=== PATIENT | male | born 1950 | race Caucasian/White ===

== ENCOUNTER 2016-06-08 00:25 | Emergency (ER) | payer OTHER ==
[2016-06-08 01:16] VITALS: RESP 16; TEMP 97.9
--- NOTE | 2016-06-08 03:46 | EDPHY ---
HPI/HX/ROS/PE/MDM Narrative: Chief complaint: General malaise, cold, caught the rate HPI: 65-year-old homeless male brought in by police after being found cold in the rain. Patient states he is his normal general fatigue and weakness. Has had a nonproductive cough which has been improving over the last week or 2. No fevers or chills. No chest pain. No nausea vomiting. No abdominal pain. ROS: 10 point Review of Systems is negative except as noted in the HPI. Physical exam: Gen: Awake, Alert, No Distress HEENT: Nose: no rhinorrhea Eyes: PERRLA, EOMI Mouth: Moist mucosa Neck: Supple, no JVD Chest: nontender, lungs clear to auscultation Heart: S1, S2 normal, no murmur Abd: Soft, non-tender, no guarding Back: no CVA tenderness, no midline tenderness Ext: no edema, non-tender Skin: no rash Neuro: CN II-XII intact, Sensation grossly intact, Strength 5/5 in bilateral upper and lower extremities ED Course: Homeless 65-year-old male with no acute medical problems going on at this time. He is mildly hypertensive. His oxygen saturations are good. He has a benign examination. He presented with mild hypothermia which is improved. His clothes are dry. [facility] General Time Seen by Provider: 06/08/16 02:21 Initial Vital Signs: Initial Vital Signs Temperature (C) 36.6 C 06/08/16 01:15 Heart Rate 79 06/08/16 01:15 Respiratory Rate 16 06/08/16 01:15 Blood Pressure 178/126 H 06/08/16 01:15 O2 Sat (%) 93 06/08/16 01:15 O2 Delivery Mode Room Air Allergies/Adverse Reactions: No Known Allergies Allergy (Unverified 01/18/16 00:10) Home Medications: Medication Instructions Recorded Lisinopril [Zestril 20 mg (*)] 20 mg PO DAILY 06/20/15 metFORMIN HCL [Glucophage 500 mg 500 mg PO DAILY 06/20/15 (*)] oxyCODONE HCL [Oxycontin] 10 mg PO 04/13/16 Departure - Departure Disposition: Home, Routine, Self-Care Clinical Impression: Hypothermia Condition: Good Instructions: Acute Hypothermia (ED) Additional Instructions: Follow up with [facility] for any concerns.
[2016-06-08 06:10] VITALS: BP 143/100; PULSE 67; O2SAT 94
== END 2016-06-08 07:01 | disposition home or self-care (01) ==
DX: T68.XXXA Hypothermia, initial encounter (principal); X31.XXXA Exposure to excessive natural cold, initial encounter

== ENCOUNTER 2016-06-16 16:31 | Inpatient (IN) | payer OTHER ==
--- NOTE | 2016-06-16 16:54 | EDPHY ---
H & P Stated Complaint: sleeping in library, incontinent of urine Time Seen by Provider: 06/16/16 16:40 HPI/ROS: CHIEF COMPLAINT: Found sleeping in library, incontinent of urine HISTORY OF PRESENT ILLNESS: The patient is a homeless male who is well known to our emergency department. He was found sleeping in the library and incontinent of urine. The patient was brought to the emergency department for further evaluation. The patient is somewhat of an unreliable historian. He does have a history of chronic incontinence per his medical history. The patient denies fever, vomiting or acute abdominal pain. The patient does walk with a walker. The patient denies any acute numbness or weakness. He does have chronic lower extremity weakness. The patient does report a history of stroke 20 years ago. The patient reports he has been using a walker for the past 2 weeks which he apparently procured at the [facility]. The patient tells me he typically gets his care at the [facility] but is uncertain of the last time he had an appointment. The patient does report he takes lisinopril but does not know his other medications. REVIEW OF SYSTEMS: A comprehensive 10 point review of systems is otherwise negative aside from elements mentioned in the history of present illness. Source: Patient Exam Limitations: No limitations - Personal History Current Tetanus/Diphtheria Vaccine: Yes Current Tetanus Diphtheria and Acellular Pertussis (TDAP): Yes Tetanus Vaccine Date: 2015 - Medical/Surgical History Hx Asthma: No Hx Chronic Respiratory Disease: No Hx Diabetes: Yes Hx Cardiac Disease: Yes Hx Renal Disease: No Hx Cirrhosis: No Hx Alcoholism: No Hx HIV/AIDS: No Hx Splenectomy or Spleen Trauma: No Other PMH: Abd hernia, DM, HTN, CVA (49yo) w/ expressive aphasia, chronic low back pain, chronic incont. chronic dental pain - Social History Smoking Status: Never smoked - Physical Exam Exam: General Appearance: Disheveled male, smells of urine Eyes: Pupils equal and round no pallor or injection ENT, Mouth: Mucous membranes moist Respiratory: There are no retractions, lungs are clear to auscultation Cardiovascular: Regular rate and rhythm Gastrointestinal: Abdomen is soft and nontender, no masses, bowel sounds normal Neurological: Alert and oriented x2 (name and place), cranial nerves 2-12 intact, chronic lower extremity weakness noted Skin: Warm and dry, no rashes Musculoskeletal: Neck is supple nontender Extremities: symmetrical, full range of motion Constitutional: Initial Vital Signs Temperature (C) 37.1 C 06/16/16 16:35 Heart Rate 81 06/16/16 16:35 Respiratory Rate 17 06/16/16 16:35 Blood Pressure 168/111 H 06/16/16 16:35 O2 Sat (%) 92 06/16/16 16:35 O2 Delivery Mode Room Air Allergies/Adverse Reactions: No Known Allergies Allergy (Verified 06/16/16 16:34) Home Medications: Medication Instructions Recorded Lisinopril [Zestril 20 mg (*)] 20 mg PO DAILY 06/20/15 metFORMIN HCL [Glucophage 500 mg 500 mg PO DAILY 06/20/15 (*)] oxyCODONE HCL [Oxycontin] 10 mg PO 04/13/16 Atenolol 06/16/16 Unable To Obtain Medication History 06/16/16 Medical Decision Making - Diagnostics Imaging: CT head without contrast: Stable atrophy. No evidence of intracranial hemorrhage or intracranial mass. Study results reported to me by Dr. Sameer Brown ED Course/Re-evaluation: I reviewed the patient's past medical records. The patient did receive IV fluids. His laboratory studies are within normal limits. A urinalysis has been obtained. The patient's postvoid residual is 70 mL. He has no evidence of urinary retention. The patient is quite confused in a very unreliable historian. I am certainly concerned about the patient's overall state of health given the fact he is homeless. At this point time the etiology of his lower extremity weakness is somewhat uncertain. The patient tells me he has been using a walker for the past 2 weeks. Additionally, the patient has incontinence. There is some mention of chronic incontinence in his medical record however I see no workup of this condition. At this point time there is no evidence of urinary tract infection or urinary retention. His serum electrolytes and CBC within normal limits. I have ordered a CT scan of his brain to assess for the development of more significant hydrocephalus is the patient does have a clinical pattern suggestive of possible normal pressure hydrocephalus. CT scan of his brain today demonstrates stable atrophy. I do feel the patient should be admitted to the hospital and evaluated by social work to see if there additional resources available for this gentleman. Consultation is made with Dr. Ignacio from the hospitalist service will admit the patient. Differential Diagnosis: Differential diagnosis considered includes acute renal failure, acute urinary retention, urinary tract infection, sepsis, dehydration, normal pressure hydrocephalus, intracranial hemorrhage - Data Points Laboratory Results: Laboratory Results 06/16/16 17:05 06/16/16 17:05 06/16/16 06/16/16 18:30 17:05 WBC 6.74 10^3/uL (3.80-9.50) RBC 5.01 10^6/uL (4.40-6.38) Hgb 14.9 g/dL (13.7-17.5) Hct 44.5 % (40.0-51.0) MCV 88.8 fL (81.5-99.8) MCH 29.7 pg (27.9-34.1) MCHC 33.5 g/dL (32.4-36.7) RDW 13.5 % (11.5-15.2) Plt Count 216 10^3/uL (150-400) MPV 11.6 fL (8.7-11.7) Neut % (Auto) 60.9 % (39.3-74.2) Lymph % (Auto) 21.1 % (15.0-45.0) Mayes % (Auto) 12.5 % (4.5-13.0) Eos % (Auto) 3.9 % (0.6-7.6) Baso % (Auto) 1.2 % (0.3-1.7) Nucleat RBC Rel Count 0.0 % (0.0-0.2) Absolute Neuts (auto) 4.11 10^3/uL (1.70-6.50) Absolute Lymphs (auto) 1.42 10^3/uL (1.00-3.00) Absolute Monos (auto) 0.84 H 10^3/uL (0.30-0.80) Absolute Eos (auto) 0.26 10^3/uL (0.03-0.40) Absolute Basos (auto) 0.08 10^3/uL (0.02-0.10) Absolute Nucleated RBC 0.00 10^3/uL (0-0.01) Immature Gran % 0.4 % (0.0-1.1) Immature Gran # 0.03 10^3/uL (0.00-0.10) Sodium 139 mEq/L (134-144) Potassium 3.6 mEq/L (3.5-5.2) Chloride 99 mEq/L (97-110) Carbon Dioxide 30 mEq/l (22-31) Anion Gap 10 mEq/L (8-16) BUN 24 H mg/dL (7-23) Creatinine 1.1 mg/dL (0.7-1.3) Estimated GFR > 60 Glucose 114 H mg/dL (70-100) Calcium 9.6 mg/dL (8.5-10.4) Urine Color PALE YELLOW Urine Appearance CLEAR Urine pH 7.0 (5.0-7.5) Ur Specific [place] 1.006 (1.002-1.030) Urine Protein 1+ H (NEGATIVE) Urine Ketones NEGATIVE (NEGATIVE) Urine Blood NEGATIVE (NEGATIVE) Urine Nitrate NEGATIVE (NEGATIVE) Urine Bilirubin NEGATIVE (NEGATIVE) Urine Urobilinogen NEGATIVE EU (0.2-1.0) Ur Leukocyte Esterase NEGATIVE (NEGATIVE) Urine RBC 1-3 /hpf (0-3) Urine WBC 1-3 /hpf (0-3) Ur Epithelial Cells NONE SEEN /lpf (NONE-1+) Ur Culture Indicated? NOT INDICATED (NI) Urine Glucose NEGATIVE (NEGATIVE) Ethyl Alcohol < 10 mg/dL (0-10) Departure - Departure Disposition: [facility] Clinical Impression: Urinary incontinence, Expressive aphasia, Hx of arterial ischemic stroke Condition: Fair
[2016-06-16 17:16] LABS: % IMMATURE GRANULYOCYTES 0.4 % (0.0-1.1); ABSOLUTE IMMATURE GRANULOCYTES 0.03 10^3/uL (0.00-0.10); ADD DIFF? NO; ADD MORPH? NO; ADD SCAN? NO; ATYPICAL LYMPHOCYTE FLAG 10 (0-99); FRAGMENT RBC FLAG 0 (0-99); HEMATOCRIT 44.5 % (40.0-51.0); HEMOGLOBIN 14.9 g/dL (13.7-17.5); LEFT SHIFT FLG 0 (0-99); LIPEMIA HEMOLYSIS FLAG 80 (0-99); MEAN CELL HEMOGLOBIN 29.7 pg (27.9-34.1); MEAN CELL HEMOGLOBIN CONCENTR. 33.5 g/dL (32.4-36.7); MEAN CELL VOLUME 88.8 fL (81.5-99.8); MEAN PLATELET VOLUME 11.6 fL (8.7-11.7); PLATELET CLUMPS FLAG 0 (0-99); PLATELET COUNT 216 10^3/uL (150-400); RED BLOOD CELL COUNT 5.01 10^6/uL (4.40-6.38); RED CELL DISTRIBUTION WIDTH 13.5 % (11.5-15.2)
[2016-06-16 17:36] LABS: ANION GAP 10 mEq/L (8-16); CALCIUM 9.6 mg/dL (8.5-10.4); CARBON DIOXIDE 30 mEq/l (22-31); CHLORIDE 99 mEq/L (97-110); CREATININE 1.1 mg/dL (0.7-1.3); ETHANOL SERUM < 10 mg/dL (0-10); GLOMERULAR FILTRATION RATE > 60; GLUCOSE 114 mg/dL (70-100); POTASSIUM 3.6 mEq/L (3.5-5.2); SODIUM 139 mEq/L (134-144)
[2016-06-16 18:42] LABS: COLOR PALE YELLOW; LEUKOCYTE ESTERASE,URINE NEGATIVE (NEGATIVE); NITRITE,URINE NEGATIVE (NEGATIVE)
[2016-06-16] MEDS ORDERED: ONDANSETRON 4 MG/2 ML VIAL IVP PRN (20:37)
[2016-06-16] MEDS ORDERED: ONDANSETRON DISINTEGRATING 4 MG TAB PO PRN (20:37)
[2016-06-16] MEDS ORDERED: ACETAMINOPHEN 325 MG TAB PO PRN (20:37)
[2016-06-16] MEDS ORDERED: D50W 25 GM/50 ML SYR IVP PRN (21:07)
--- NOTE | 2016-06-16 21:15 | CT ---
CT Brain (Without Contrast) June 15, 2016 at 1935 hours History: Incontinence and dementia. Evaluate for normal pressure hydrocephalus. Technique: Axial computed tomographic images of the brain, without contrast. Dose reduction techniq ues were utilized. Comparison: January 24, 2016. Findings: Ventricles, cisterns, and sulci are widened consistent with atrophy. No hydrocephalus, mi dline shift/herniation, or epidural/subdural hematomas. No acute intraparenchymal hemorrhage or mass effect. Cerebrovascular atherosclerosis. Hypodensities in the white matter of bilateral cerebral h emispheres. Bone windows demonstrate no displaced fractures. Paranasal sinuses and mastoid air cell s are clear. Impressions 1. Moderate atrophy. Ventricular size remains stable compared to five months prior. Normal pressur e hydrocephalus is not completely excluded. 2. No acute hemorrhage, hydrocephalus, or mass effect. 3. Cerebrovascular atherosclerosis. 4. No definite acute infarct. 5. Moderate microvascular ischemic disease. Results discussed by Dr. Brown with Dr. Velez on June 16, 2016 at 1956 hours.
[2016-06-16] MEDS: hydrALAZINE 25 MG TAB PO SCH (21:44)
--- NOTE | 2016-06-16 23:13 | DX ---
AP upright portable chest. June 16, [id number] hours. COMPARISON: May 12, 2016 January 18, 2016. FINDINGS: Lungs are hypoventilated. Heart size is within normal limits. No effusions. Mild bronchial wall thickening is again present. Old healed left rib fractures are noted. IMPRESSION: Mild hypoventilation. Suspect airways disease.
--- NOTE | 2016-06-17 00:19 | GHP ---
[f rep st] HISTORY AND PHYSICAL DATE OF ADMISSION: 06/16/2016 CHIEF COMPLAINT: Urinary incontinence, FTT HISTORY OF PRESENT ILLNESS: Patient is a 66-year-old male with history of CVA and dysphagia, homelessness, who was found sleeping in the library and incontinent of urine today. He was brought to the emergency room for further evaluation. He is a poor historian. Most of my data is from review of prior records and the ED physician reports. It is noted he has a history of chronic incontinence. He denies fevers, chills, or sweats. He has shortness of breath , which he says is chronic and unchanged. He has a dry cough. No numbness tingling. He says he has been using a walker for the past 2 weeks, which he got from the homeless snf. He normally gets care at the [place]. Unclear last time he visited there. The patient was seen in the emergency room here a week ago after being found cold in the rain. At that time, he had his normal general fatigue and weakness. He was hydrated and warmed, and then discharged to follow up with [facility]. REVIEW OF SYSTEMS: I completed a 10-point review of systems, negative except as noted in HPI. PAST MEDICAL HISTORY: 1. CVA with subsequent aphasia. 2. Homelessness. 3. Type 2 diabetes. 4. Hypertension. PAST SURGICAL HISTORY: The patient could not tell me. MEDICATIONS: He states he is on lisinopril and metformin, but unclear dosage and when the last time he took. ALLERGIES: No known drug allergies. SOCIAL HISTORY: Lives in [facility]. He denies tobacco, alcohol, or illicit's. He is a . He was in the [employer]. FAMILY HISTORY: Could not tell me. PHYSICAL EXAMINATION: VITAL SIGNS: Temperature 36.6, blood pressure 164/113, heart rate 70s-80s, respirations 16, 91% on room air. GENERAL: Disheveled. HEENT: Poor dentition. Dry mucous membranes. Dry cough. CV: Regular rate and rhythm. No murmurs, gallops, or rubs. +1 edema to recinos bilaterally. LUNGS : Clear to auscultation. ABDOMEN: Soft, nontender, nondistended. Positive bowel sounds. : No suprapubic tenderness. MUSCULOSKELETAL: 5/5 upper lower extremity strength. NEURO: 2 through 12 intact. Aphasic, difficult to answer questions. PSYCH: Alert to [place] only, said year was 2015. LABS: WBC 6.7, hemoglobin 14, hematocrit 44, platelets 216, sodium 139, potassium 3.6, chloride 99, BUN 24, creatinine 1.1, glucose 114, calcium 9.6. Urine +1 protein. Blood alcohol was negative. ASSESSMENT AND PLAN: 1. Failure to thrive: this is his 2nd visit to the ER in the past week. He is unclear why he was here. Query underlying dementia. PT & OT to evaluate. CTH was negative for acute stroke or normal hydrocephalus. The patient is a , thus will have [facility] management assist [facility]. 2. Accelerated hypertension. Patient denies chest pain or headache. No evidence of end-organ damage. Will check an EKG. He states he takes lisinopril , unclear when he last took this dose. I will dose him in the morning. In the interim, I will dose p.r.n. hydralazine. 3. Control diabetes. Hold metformin. Will do sliding scale insulin here. 4. History of stroke: Aphasic. No evidence of new ischemia on CT. Patient needs better blood pressure control as stated above. 5. Homelessness: case management to evaluate. 6. Cough: check CXR and flu swab. I will check a chest x-ray. 8. Diet. Regular. 9. DVT prophylaxis. 10. Disposition. Patient warrants inpatient admission given failure to thrive and risk for harm to self. /[id number]/MODL MTDD
[2016-06-17] MEDS: hydrALAZINE 25 MG TAB PO SCH (05:00)
[2016-06-17 05:50] LABS: ANION GAP 11 mEq/L (8-16); CALCIUM 8.9 mg/dL (8.5-10.4); CARBON DIOXIDE 26 mEq/l (22-31); CHLORIDE 102 mEq/L (97-110); CREATININE 0.9 mg/dL (0.7-1.3); GLOMERULAR FILTRATION RATE > 60; GLUCOSE 153 mg/dL (70-100); POTASSIUM 3.5 mEq/L (3.5-5.2); SODIUM 139 mEq/L (134-144)
[2016-06-17] MEDS: LISINOPRIL 20 MG TAB PO SCH (08:00)
[2016-06-17] MEDS: INSULIN LISPRO 100 UNIT/ML SC SCH ×3 (09:50→17:41)
--- NOTE | 2016-06-17 09:52 | HOSPPROG ---
Hospitalist Progress Note Assessment/Plan: ASSESSMENT/PLAN: 66-year-old man, history of CVA with aphasia, homeless, initially presented as failure to thrive after being found in the library incontinent of urine and sleeping. Workup reveals influenza a. # influenza a - start Tamiflu # CVA with aphasia - start aspirin/statin # hypertension: Continue lisinopril, start low-dose amlodipine # diabetes mellitus type 2 - glucs slightly elevated, follow - per chart on metformin # homeless - CM assistance # FCFT # lovenox SUBJECTIVE: Has headache; tells me he is always weak on the right side; he received IV hydralazine last night for hypertension OBJECTIVE: Vitals reviewed Comfortable, no acute distress Aphasic, speaks 1 or 2 word sentences; slightly weak on the right side Regular rate and rhythm, no murmurs rubs or gallops No respiratory distress, lungs clear to auscultation bilaterally; no wheezes rales or rhonchi Abdomen with normal bowel sounds, soft, nontender, nondistended LABORATORY DATA: Reviewed IMAGING: Chest x-ray personally viewed and interpreted, airways disease Objective: Vital Signs Temp Pulse Resp BP Pulse Ox 36.9 C 95 16 182/125 H 95 06/17/16 07:16 06/17/16 07:16 06/17/16 07:16 06/17/16 08:00 06/17/16 07:16 Laboratory Results 06/17/16 05:16 06/16/16 06/17/16 06/18/16 05:59 05:59 05:59 Intake Total 400 Output Total 100 Balance 300 ICD10 Worksheet Patient Problems: Problems Problem Status Diagnosed Altered mental status Acute Expressive aphasia Acute Flu Acute Hx of arterial ischemic stroke Acute Urinary incontinence Acute Fall Acute Hematuria Acute
[2016-06-17] MEDS: ASPIRIN 81 MG CHEWABLE TAB PO SCH (10:10)
[2016-06-17] MEDS: OSELTAMIVIR PHOSPHATE 75 MG CAP PO SCH ×2 (10:11→16:51)
[2016-06-17] MEDS: ENOXAPARIN 40 MG/0.4 ML SYR SC SCH (12:05)
[2016-06-18 05:35] LABS: % IMMATURE GRANULYOCYTES 0.2 % (0.0-1.1); ABSOLUTE IMMATURE GRANULOCYTES 0.01 10^3/uL (0.00-0.10); ADD DIFF? NO; ADD MORPH? NO; ADD SCAN? NO; ATYPICAL LYMPHOCYTE FLAG 10 (0-99); FRAGMENT RBC FLAG 0 (0-99); HEMATOCRIT 42.7 % (40.0-51.0); HEMOGLOBIN 14.6 g/dL (13.7-17.5); LEFT SHIFT FLG 0 (0-99); LIPEMIA HEMOLYSIS FLAG 90 (0-99); MEAN CELL HEMOGLOBIN 29.4 pg (27.9-34.1); MEAN CELL HEMOGLOBIN CONCENTR. 34.2 g/dL (32.4-36.7); MEAN CELL VOLUME 86.1 fL (81.5-99.8); MEAN PLATELET VOLUME 11.1 fL (8.7-11.7); PLATELET CLUMPS FLAG 10 (0-99); PLATELET COUNT 198 10^3/uL (150-400); RED BLOOD CELL COUNT 4.96 10^6/uL (4.40-6.38); RED CELL DISTRIBUTION WIDTH 13.7 % (11.5-15.2)
[2016-06-18 06:20] LABS: ANION GAP 11 mEq/L (8-16); CALCIUM 8.6 mg/dL (8.5-10.4); CARBON DIOXIDE 25 mEq/l (22-31); CHLORIDE 102 mEq/L (97-110); CHOLESTEROL 171 mg/dL (140-220); CHOLESTEROL/HDL RATIO 5.34 RATIO (1.00-4.97); GLOMERULAR FILTRATION RATE > 60; GLUCOSE 151 mg/dL (70-100); HIGH DENSITY LIPOPROTEIN 32 mg/dL (40-65); LDL/HDL RATIO 3.38 RATIO (1.00-3.64); LOW DENSITY LIPOPROTEIN 108 mg/dL (80-100); NON-HIGH DENSITY LIPOPROTEIN 139 mg/dL (90-129); POTASSIUM 3.4 mEq/L (3.5-5.2); SODIUM 138 mEq/L (134-144); TRIGLYCERIDE 156 mg/dL (40-150); VERY LOW DENSITY LIPOPROTEINS 31 mg/dL (8-25)
[2016-06-18] MEDS: LISINOPRIL 20 MG TAB PO SCH (06:50)
[2016-06-18] MEDS ORDERED: POTASSIUM CL 20 MEQ TAB PO ONE (08:44)
--- NOTE | 2016-06-18 08:45 | HOSPPROG ---
Hospitalist Progress Note Assessment/Plan: ASSESSMENT/PLAN: 66-year-old man, history of CVA with aphasia, homeless, initially presented as failure to thrive after being found in the library incontinent of urine and sleeping. Workup reveals influenza a. # influenza a - cont tamiflu # weakness - likely d/t influenza in the setting of underlying chronic illness # urinary incontinence - suspect baseline; UA negative # CVA with aphasia - start aspirin/statin - LDL slightly high but he was not taking medicines # hypertension: Continue lisinopril, start low-dose amlodipine # diabetes mellitus type 2 - glucs slightly elevated, follow - start metformin # hypokalemia: Replete and recheck # homeless - CM assistance - likely needs SNF # FCFT # lovenox # mod risk with ongoing weakness SUBJECTIVE: Weak, urinary incontinence OBJECTIVE: Vitals reviewed Comfortable, no acute distress expressive aphasia Regular rate and rhythm, no murmurs rubs or gallops No respiratory distress, lungs clear to auscultation bilaterally; no wheezes rales or rhonchi Abdomen with normal bowel sounds, soft, nontender, nondistended LABORATORY DATA: Reviewed Objective: Vital Signs Temp Pulse Resp BP Pulse Ox 37.1 C 75 18 149/102 H 93 06/18/16 07:40 06/18/16 07:40 06/18/16 07:40 06/18/16 07:40 06/18/16 07:40 Laboratory Results 06/18/16 05:28 06/18/16 05:28 06/17/16 06/18/16 06/19/16 05:59 05:59 05:59 Intake Total 400 500 Output Total 100 Balance 300 500 ICD10 Worksheet Patient Problems: Problems Problem Status Diagnosed Altered mental status Acute Expressive aphasia Acute Flu Acute Hx of arterial ischemic stroke Acute Urinary incontinence Acute Fall Acute Hematuria Acute
[2016-06-18] MEDS: INSULIN LISPRO 100 UNIT/ML SC SCH ×3 (09:00→18:37)
[2016-06-18] MEDS: ATORVASTATIN CALCIUM 10 MG TAB PO SCH (09:38)
[2016-06-18] MEDS: OSELTAMIVIR PHOSPHATE 75 MG CAP PO SCH ×2 (09:38→18:01)
[2016-06-18] MEDS: metFORMIN HCL 500 MG TAB PO SCH (09:38)
[2016-06-18] MEDS: ASPIRIN 81 MG CHEWABLE TAB PO SCH (09:38)
[2016-06-18] MEDS: ENOXAPARIN 40 MG/0.4 ML SYR SC SCH (09:43)
[2016-06-19 06:20] LABS: ANION GAP 9 mEq/L (8-16); CALCIUM 8.7 mg/dL (8.5-10.4); CARBON DIOXIDE 26 mEq/l (22-31); CHLORIDE 104 mEq/L (97-110); CREATININE 1.1 mg/dL (0.7-1.3); GLOMERULAR FILTRATION RATE > 60; GLUCOSE 114 mg/dL (70-100); POTASSIUM 3.6 mEq/L (3.5-5.2); SODIUM 139 mEq/L (134-144)
[2016-06-19] MEDS: INSULIN LISPRO 100 UNIT/ML SC SCH ×3 (07:21→18:02)
[2016-06-19] MEDS: OSELTAMIVIR PHOSPHATE 75 MG CAP PO SCH ×2 (09:44→18:02)
[2016-06-19] MEDS: ATORVASTATIN CALCIUM 10 MG TAB PO SCH (09:45)
[2016-06-19] MEDS: metFORMIN HCL 500 MG TAB PO SCH (09:45)
[2016-06-19] MEDS: ASPIRIN 81 MG CHEWABLE TAB PO SCH (09:45)
[2016-06-19] MEDS: ENOXAPARIN 40 MG/0.4 ML SYR SC SCH (09:45)
[2016-06-19] MEDS: LISINOPRIL 20 MG TAB PO SCH (09:47)
--- NOTE | 2016-06-19 19:48 | HOSPPROG ---
Hospitalist Progress Note Assessment/Plan: ASSESSMENT/PLAN: 66-year-old man, history of CVA with aphasia, homeless, initially presented as failure to thrive after being found in the library incontinent of urine and sleeping. Workup revealed influenza a. # influenza a - cont tamiflu # weakness - likely d/t influenza in the setting of underlying chronic illness. Order PT/OT to help get pt mobile again. # urinary incontinence - suspect baseline; UA negative. Cannot r/o NPH at this time. Consider further workup for NPH in future. # h/o CVA with aphasia - aspirin/statin # hypertension: - continue lisinopril, amlodipine # diabetes mellitus type 2 - metformin # numbness in hands - may be 2/2 cold exposure. Order OT to eval/Tx hand function. # hypokalemia: resolved # homeless - CM assistance - likely needs SNF # full code # VTE ppx - lovenox # mod risk with ongoing weakness Dispo: > 2 midnight stay. Will need placement in a SNF. SUBJECTIVE: Weak, urinary incontinence. C/o numbness in b/l hands which was not present before. He feels like he may have been frostbitten but does not recall being in the cold. OBJECTIVE: Vitals reviewed Gen: Comfortable, in chair, no acute distress. Neuro: expressive aphasia. Psych: Regular rate and rhythm, no murmurs rubs or gallops. Resp: No respiratory distress, lungs clear to auscultation bilaterally; no wheezes rales or rhonchi. Abd: Abdomen with normal bowel sounds, soft, nontender, nondistended. Psych: flat affect. Skin: no pallor or jaundice. LABORATORY/IMG DATA: Reviewed Objective: Vital Signs Temp Pulse Resp BP Pulse Ox 36.6 C 75 16 133/84 H 91 L 06/19/16 19:32 06/19/16 19:32 06/19/16 19:32 06/19/16 19:32 06/19/16 19:32 Laboratory Results 06/18/16 05:28 06/19/16 05:15 06/18/16 06/19/16 06/20/16 05:59 05:59 05:59 Intake Total 500 1750 700 Balance 500 1750 700 ICD10 Worksheet Patient Problems: Problems Problem Status Diagnosed Altered mental status Acute Expressive aphasia Acute Flu Acute Hx of arterial ischemic stroke Acute Urinary incontinence Acute Fall Acute Hematuria Acute
[2016-06-20 07:45] VITALS: BP 169/118; PULSE 58; RESP 18; TEMP 98; O2SAT 94
[2016-06-20] MEDS: ASPIRIN 81 MG CHEWABLE TAB PO SCH (07:59)
[2016-06-20] MEDS: LISINOPRIL 20 MG TAB PO SCH (07:59)
[2016-06-20] MEDS: OSELTAMIVIR PHOSPHATE 75 MG CAP PO SCH (07:59)
[2016-06-20] MEDS: ENOXAPARIN 40 MG/0.4 ML SYR SC SCH (08:00)
[2016-06-20] MEDS: metFORMIN HCL 500 MG TAB PO SCH (08:00)
[2016-06-20] MEDS: INSULIN LISPRO 100 UNIT/ML SC SCH ×2 (08:01→12:20)
[2016-06-20] MEDS: ATORVASTATIN CALCIUM 10 MG TAB PO SCH (08:10)
--- NOTE | 2016-06-20 11:38 | PDIAF ---
- Diagnosis Diagnosis: Gen weakness, influenza, h/o CVA, expressive aphasia, urinary incontinence Code Status: Full Code - Medication Management Discharge Medications: Medications to Continue on Transfer Acetaminophen [Tylenol 325mg (*)] 650 mg PO Q4HRS PRN #0 tab 06/20/16 [Last Taken Unknown] Aspirin [Aspirin 81mg (*)] 81 mg PO DAILY #0 tab.chew 06/20/16 [Last Taken Unknown] Atorvastatin Calcium [Lipitor 10 mg (*)] 10 mg PO DAILY #0 tab 06/20/16 [Last Taken Unknown] Dextrose 50% Syringe 25 gm IVP PRN PRN #0 syr 06/20/16 [Last Taken Unknown] Insulin Lispro [humALOG LISPRO 100 units/ml (*)] 0 unit SC TIDMEAL #0 unit 06/20 [Last Taken Unknown] Lisinopril [Zestril 20 mg (*)] 20 mg PO DAILY #0 tab 06/20/16 [Last Taken Unknown] Ondansetron Odt [Zofran Odt 4 mg (*)] 4 mg PO Q4HRS PRN #0 tab 06/20/16 [Last Taken Unknown] Oseltamivir Phosphate [Tamiflu 75 mg (*)] 75 mg PO BIDMEAL #0 cap 06/20/16 [ Last Taken Unknown] amLODIPine BESYLATE [Norvasc 2.5 mg (*)] 10 mg PO DAILY #0 tab 06/20/16 [Last Taken Unknown] metFORMIN HCL [Glucophage 500 mg (*)] 500 mg PO DAILY #0 tab 06/20/16 [Last Taken Unknown] Discharge Medications: Refer to the Discharge Home Medication list for PRN reason. PICC Care - Routine: N/A - Orders Services needed: Registered Nurse, Certified Dynamics Ax Consultant, Master Slicing Machine Operator/Tender , Physical Therapy, Occupational Therapy, Speech Language Pathologist Isolation Type: Airborne x 1 day. Oxygen: Not needed Diet Recommendation: low fat, cardiac -low fat low salt, ADA 2000 consistent carb Diet Texture: Regular Texture Diet Weigh Patient: weekly Call: No - Follow Up Care Current Providers and Referrals: NONE *PRIMARY CARE P,. [Primary Care Provider] - follow up in 2 weeks (Please follow up with a physician at [facility] in 2 weeks.)
== END 2016-06-20 14:44 | DRG 195 ==
LOC: EDUNIT# → F1N 20:33
PROVIDERS: ADMIT Internal Medicine; ATTEND Internal Medicine
DX: J10.1 Influenza due to other identified influenza virus with other respiratory manifestations (principal); N39.498 Other specified urinary incontinence; R62.7 Adult failure to thrive; I10 Essential (primary) hypertension; E11.9 Type 2 diabetes mellitus without complications; E87.6 Hypokalemia; I69.320 Aphasia following cerebral infarction; Z79.84 Long term (current) use of oral hypoglycemic drugs; Z59.0 Homelessness
CPT/HCPCS: 97116-GP; 97162-GP; 97166-GO; 97535-GO; G0480; G8978-GP-CJ; G8979-GP-CI; G8987-GO-CK; G8988-GO-CI; J1650; J1815